=== PATIENT | male | born 1935 | race Caucasian/White ===

== ENCOUNTER → 2020-05-29 10:06 | Outpatient (CLI) | payer OTHER, SELFPAY ==
--- NOTE | 2020-05-29 10:12 | US_ITS ---
STUDY: ABDOMINAL ULTRASOUND - left lower QUADRANT REASON FOR VISIT: Male, 85 years old LLQ pain TECHNIQUE: Ultrasound evaluation of the right upper quadrant was performed with real-time and static cifuentes-scale imaging. TECHNICAL QUALITY: Adequate. COMPARISON: None. FINDINGS: Imaging of the left lower quadrant was performed as per the ordering physician. No sonographic abnormality is seen. US/Abdomen Limited IMPRESSION: No sonographic abnormality of the left lower quadrant is seen with ultrasound. Electronically Signed: Mark Rose MD at 12:43 EST , Service support ,
== END ==
DX: R10.30 Lower abdominal pain, unspecified (principal)
CPT/HCPCS: 76705